=== PATIENT | male | born 1980 ===

== ENCOUNTER 2016-06-12 17:42 | Emergency (ER) | payer SELFPAY ==
[2016-06-12] MEDS ORDERED: Piperacillin/Tazobact 3.375 gm 100 ML IV STA (18:20)
[2016-06-12] MEDS ORDERED: Sodium Chloride 0.9% 1,000 ML IV ONE (18:21)
[2016-06-12] MEDS ORDERED: Piperacillin/Tazobact 3.375 gm 100 ML IVPB ONE (18:40)
[2016-06-12] MEDS ORDERED: Sodium Chloride 0.9% 1,000 ML ONE (18:40)
[2016-06-12 18:44] LABS: BASO % 0.6 % (0.0-2.0); EOS # 0.3 K/uL (0.0-0.7); EOS % 3.5 % (0.0-4.0); HEMATOCRIT 38.2 % (35.0-51.0); LYMPH # 1.4 K/uL (1.0-4.3); LYMPH % 18.3 % (20.0-40.0); MEAN CELL VOLUME 88.2 fL (80.0-94.0); MEAN CORPUSCULAR HEMOGLOBIN 29.8 pg (27.0-31.0); MEAN CORPUSCULAR HGB CONC 33.8 g/dL (33.0-37.0); MEAN PLATELET VOLUME 7.7 fL (7.2-11.7); MONO # 0.6 K/uL (0.0-0.8); MONO % 7.9 % (0.0-10.0); RED CELL DISTRIBUTION WIDTH 12.9 % (11.5-14.5); WHITE BLOOD COUNT 7.5 K/uL (4.8-10.8)
[2016-06-12 18:51] LABS: CHLORIDE 101 mmol/L (98-107)
[2016-06-12 18:52] LABS: POTASSIUM 3.9 mmol/L (3.6-5.2); SODIUM 142 mmol/L (132-148)
[2016-06-12 18:54] LABS: ALB/GLOB RATIO 1.3 (1.0-2.1); AST/SGOT 25 U/L (17-59); BILIRUBIN,TOTAL 0.4 mg/dL (0.2-1.3); CARBON DIOXIDE 29 mmol/L (22-30); GFR AFRICAN-AMERICAN > 60; TOTAL PROTEIN 7.8 g/dL (6.3-8.3)
[2016-06-12 18:55] LABS: ALKALINE PHOSPHATASE 88 U/L (38-126); ALT/SGPT 36 U/L (21-72); BLOOD UREA NITROGEN 23 mg/dL (9-20); CALCIUM 9.6 mg/dl (8.6-10.4); GLUCOSE,RANDOM 116 mg/dL (75-110)
[2016-06-12] MEDS ORDERED: Iodixanol 320 MG/ML 100 ML BOTTLE IV ONE (19:23)
--- NOTE | 2016-06-12 20:30 | C.PDOC ---
History Of Present Illness Patient presents to the ED with complaints of pain and swelling in the right elbow. Patient hit his elbow last week at work and has increased in swelling. Patient had a subjective fever while at home. Patient denies taking any antibiotics. Patient denies any numbness or sensory changes. Time Seen by Provider: 06/12/16 18:13 Chief Complaint (Nursing): Upper Extremity Problem/Injury History Per: Patient History/Exam Limitations: no limitations Onset/Duration Of Symptoms: Days Current Symptoms Are (Timing): Worse Quality: "Pain" Past Medical History Reviewed: Historical Data, Nursing Documentation, Vital Signs Vital Signs: Last Vital Signs Temp 100 F H 06/12/16 18:05 Pulse 88 06/12/16 18:05 Resp 18 06/12/16 18:05 BP 152/106 H 06/12/16 18:05 Pulse Ox 99 06/12/16 21:00 Surgical History: Appendectomy Family History: States: Unknown Family Hx - Social History Hx Alcohol Use: No Hx Substance Use: No - Immunization History Hx Tetanus Toxoid Vaccination: No Hx Influenza Vaccination: No Hx Pneumococcal Vaccination: No Review Of Systems Musculoskeletal: Positive for: Other (right elbow pain) Neurological: Negative for: Weakness, Numbness Physical Exam - Physical Exam Appears: Non-toxic Skin: Warm, Dry Extremity: No Normal ROM (decreased range of motion in right elbow due to pain) , Tenderness (right elbow ), Swelling (right elbow) Neurological/Psych: Oriented x3 ED Course And Treatment - Laboratory Results Result Diagrams: 06/12/16 18:37 06/12/16 18:37 Lab Interpretation: Normal O2 Sat by Pulse Oximetry: 99 - Other Rad Elbow X-Ray: Interpreted by Me, Viewed By Me Interpretation: Plain film was negative. - CT Scan/US Upper Extremity Other Rad Studies (CT/US): Read By Radiologist, Radiology Report Reviewed CT/US Interpretation: IMPRESSION: - No acute fractures identified. - Small 1 cm round, low density masslike area in the elbow soft tissues posteriorly, which. could represent a small fluid collection. A resolving hematoma could have this appearance,. although a small abscess is not excluded. There is no associated gas. Recommend clinical. correlation. Diffuse soft tissue swelling is noted. - See above for remaining findings. Reevaluation Time: 20:59 Reassessment Condition: Improved Medical Decision Making Medical Decision Making: small area of cellulitis and ? small fluctuance, undrainable now. Continue abx and consider drainage if becomes more confluent. Disposition Doctor Will See Patient In The: Office Counseled Patient/Family Regarding: Studies Performed, Diagnosis - Disposition Disposition: HOME/ ROUTINE Disposition Time: 21:00 Condition: GOOD - Clinical Impression Clinical Impression: Cellulitis - Scribe Statement Carly Bautista All medical record entries made by the Danaibe were at my direction and personally dictated by me. I have reviewed the chart and agree that the record accurately reflects my personal performance of the history, physical exam, medical decision making, and the department course for this patient. I have also personally directed, reviewed, and agree with the discharge instructions and disposition.
--- NOTE | 2016-06-12 20:53 | CT ---
EXAM: CT Right Upper Extremity With Intravenous Contrast, Elbow. CLINICAL HISTORY: 36 years old, male; Pain and injury or trauma; Injury Patient fell; Late effect from previous injury; Pt fell inj to elbow a week later he injured elbow again causing swelling; Right; Additional info: R elbow fracture vs infection TECHNIQUE: Axial computed tomography images of the right elbow with intravenous contrast. This CT exam was performed using one or more of the following dose reduction techniques: automated exposure control, adjustment of the mA and/or kV according to patient size, and/or use of iterative reconstruction technique. Coronal and sagittal reformatted images were created and reviewed. CONTRAST: 100 mL of visipaque administered intravenously. EXAM DATE/TIME: 06/12/2016 6:21 PM COMPARISON: No relevant prior studies available. FINDINGS: LIMITATIONS: Exam is somewhat limited by streak artifact. BONES/JOINTS: A tiny bony density is seen abutting the proximal ulna, most likely representing a normal variant or the sequela of a remote injury. No acute fractures are seen. No evidence of acute dislocation. No evidence of erosions or suspicious focal bony lesions. Joint spaces are preserved. No evidence of significant joint effusion. SOFT TISSUES: Diffuse subcutaneous edema and soft tissue swelling are seen, greatest in the elbow soft tissues posteriorly. Best visualized on image 38 of series 601, there is a small round, low density masslike area in the elbow soft tissues posteriorly measuring 1 cm, located at the level of the proximal ulna, which could represent a small fluid collection. This does not contain gas. No evidence of diffuse soft tissue gas. No evidence of a large, acute soft tissue hematoma. IMPRESSION: - No acute fractures identified. - Small 1 cm round, low density masslike area in the elbow soft tissues posteriorly, which could represent a small fluid collection. A resolving hematoma could have this appearance, although a small abscess is not excluded. There is no associated gas. Recommend clinical correlation. Diffuse soft tissue swelling is noted. - See above for remaining findings.
[2016-06-12 21:28] VITALS: BP 148/87; PULSE 91; RESP 16; TEMP 98; O2SAT 96
--- NOTE | 2016-06-13 10:46 | RAD ---
PROCEDURE: Right Wrist Radiographs. HISTORY: R elbow consution, swelling, ? infection COMPARISON: None. FINDINGS: BONES: No definitive radiographic evidence of acute displaced fracture nor dislocation. Tiny of enthesophyte seen arising from the olecranon. There is mild to moderate dorsal soft tissue swelling or posttraumatic bursitis. Rule out infectious bursitis or cellulitis. JOINTS: No significant osteoarthritis. SOFT TISSUES: As above OTHER FINDINGS: None. IMPRESSION: No acute fracture seen. Small enthesophyte seen arising from the olecranon. Mild and moderate dorsal soft tissue swelling - nonspecific though could represent posttraumatic sequela including posttraumatic bursitis. Rule out infectious bursitis or cellulitis. If symptoms persist or occult fracture suspected clinically recommend repeat radiographs 5-10 days as most fractures should become radiographically evident in this timeframe.
== END 2016-06-12 21:50 | disposition home or self-care (01) ==
LOC: C.ER 17:42
DX: L03.113 Cellulitis of right upper limb (principal)
CPT/HCPCS: 73080; 73201; 80053; 85025; 96365; 96367; 96375; 99284; J1885; J2543; J3370; J7040; Q9967

== ENCOUNTER 2016-06-16 13:04 | Emergency (ER) | payer SELFPAY ==
[2016-06-16 13:24] VITALS: BP 137/82; PULSE 66; RESP 18; TEMP 97.5; O2SAT 97
--- NOTE | 2016-06-16 13:54 | C.PDOC ---
History Of Present Illness 36 y/o male presents to the ED with complains of right elbow pain and redness. Pt was seen in ED 06/12 for the same, patient reported injuring elbow at work 1 week prior to ED visit. Pt was placed on augmentin and went back to work against medical advice, pain worsened mostly at night after working. Pt denies fever, chills, weakness, numbness or any other complaints. Time Seen by Provider: 06/16/16 13:26 Chief Complaint (Nursing): Abnormal Skin Integrity History Per: Patient History/Exam Limitations: no limitations Onset/Duration Of Symptoms: Days Current Symptoms Are (Timing): Still Present Quality: "Pain" Exacerbating Factor(s): Worse At Night Recent travel outside of the [place]: No Past Medical History Reviewed: Historical Data, Nursing Documentation, Vital Signs Vital Signs: Last Vital Signs Temp 97.5 F L 06/16/16 13:19 Pulse 66 06/16/16 13:19 Resp 18 06/16/16 13:19 BP 137/82 06/16/16 13:19 Pulse Ox 97 06/16/16 14:04 - Medical History PMH: No Chronic Diseases Surgical History: Appendectomy Family History: States: Unknown Family Hx - Social History Hx Alcohol Use: No Hx Substance Use: No - Immunization History Hx Tetanus Toxoid Vaccination: No Hx Influenza Vaccination: No Hx Pneumococcal Vaccination: No Review Of Systems Except As Marked, All Systems Reviewed And Found Negative. Constitutional: Negative for: Fever, Chills Musculoskeletal: Positive for: Other (right elbow pain and redness) Neurological: Negative for: Weakness, Numbness Physical Exam - Physical Exam Appears: Non-toxic, No Acute Distress Skin: Warm, Dry, No Rash Head: Atraumatic, Normacephalic Chest: Symmetrical Cardiovascular: Rhythm Regular Respiratory: Normal Breath Sounds, No Rales, No Rhonchi, No Wheezing Extremity: Normal ROM, No Deformity, Other (erythema on right elbow) Neurological/Psych: Oriented x3, Normal Motor, Normal Sensation ED Course And Treatment O2 Sat by Pulse Oximetry: 97 (on room air) Pulse Ox Interpretation: Normal Progress Note: Patient returned for re-evaluation of cellulitis of right elbow. full rom, (-) streaking. Patienbt reports he went back to work and has increase pain when at work. CT and X-Rays reviewed from prior visit. Discharged in stable condition, Work noted provided Disposition Counseled Patient/Family Regarding: Diagnosis, Need For Followup - Disposition Referrals: [facility] [Outside] [facility] [Outside] Disposition: HOME/ ROUTINE Disposition Time: 14:00 Condition: IMPROVED Additional Instructions: continue current medications Instructions: Cellulitis (ED) Forms: Work Excuse Print Language: ARMENIAN - POA Present On Arrival: None - Clinical Impression Clinical Impression: Skin irritation, Cellulitis - PA / FINANCIAL ASSISTANCE ADVISOR / Resident Statement MD/DO has reviewed & agrees with the documentation as recorded. - Scribe Statement The provider has reviewed the documentation as recorded by the Danaibmick Scherer All medical record entries made by the Laurie were at my direction and personally dictated by me. I have reviewed the chart and agree that the record accurately reflects my personal performance of the history, physical exam, medical decision making, and the department course for this patient. I have also personally directed, reviewed, and agree with the discharge instructions and disposition.
--- NOTE | 2016-06-16 13:55 | C.PDOC ---
Time Seen by Provider: 06/16/16 13:26 Chief Complaint (Nursing): Abnormal Skin Integrity Past Medical History Vital Signs: Last Vital Signs Temp 97.5 F L 06/16/16 13:19 Pulse 66 06/16/16 13:19 Resp 18 06/16/16 13:19 BP 137/82 06/16/16 13:19 Pulse Ox 97 06/16/16 13:54 Surgical History: Appendectomy Family History: States: Unknown Family Hx - Social History Hx Alcohol Use: No Hx Substance Use: No - Immunization History Hx Tetanus Toxoid Vaccination: No Hx Influenza Vaccination: No Hx Pneumococcal Vaccination: No ED Course And Treatment O2 Sat by Pulse Oximetry: 97 Disposition - Disposition Referrals: at [facility] [Outside] [facility] [Outside] Instructions: Cellulitis (ED) - Clinical Impression Clinical Impression: Skin irritation, Cellulitis
== END 2016-06-16 13:55 | disposition home or self-care (01) ==
LOC: C.ER 13:04
DX: L03.113 Cellulitis of right upper limb (principal); L98.8 Other specified disorders of the skin and subcutaneous tissue